=== PATIENT | male | born 1960 | race Caucasian/White ===

== ENCOUNTER 2016-11-08 20:52 | Emergency (ER) | payer OTHER ==
[~2016-11-08 20:52] MED LIST: KLONOPIN1 MG PO; LIBRIUM25 MG PO; SERTRALINE HCL50 MG PO; THERAGRAN1 TABLET PO; THIAMINE HCL100 MG PO; VALIUM10 MG PO; VITAMIN B-1100 MG PO
== END 2016-11-08 20:58 | disposition left against medical advice (07) ==
LOC: EME 20:52
DX: M54.9 Dorsalgia, unspecified (principal); Z53.21 Procedure and treatment not carried out due to patient leaving prior to being seen by health care provider

== ENCOUNTER 2017-01-14 12:24 | Emergency (ER) | payer OTHER ==
[~2017-01-14] VITALS: Ht 172.7 cm; Wt 65.9 kg
[2017-01-14 13:29] LABS: HEMATOCRIT 40.3 % (38.0-50.0); MCH 33.7 PG (29.0-34.0); MCV 96.4 FL (86-99); RBC DIS.WIDTH-CV 13.5 % (11.8-14.6); RBC DIS.WIDTH-SD 48.3 % (39-53); RED BLOOD COUNT 4.18 M/uL (4.00-5.50); WHITE BLOOD COUNT 3.1 K/uL (4.1-10.2)
[2017-01-14 13:31] VITALS: BP 123/98
[2017-01-14 13:31] LABS: CHLORIDE 101 mEq/L (99-109)
[2017-01-14 13:32] LABS: SODIUM 139 mEq/L (136-147)
[2017-01-14 13:34] LABS: GLUCOSE 99 mg/dL (70-99)
[2017-01-14 13:35] LABS: ANION GAP 14 MEQ/L (2-14)
[2017-01-14 13:36] LABS: TOTAL BILIRUBIN 1.5 mg/dL (0.0-1.0)
[2017-01-14 13:37] LABS: ALKALINE PHOSPHATASE 76 IU/L (3-129); SERUM ETHYL ALCOHOL 404 mg/dL
[2017-01-14 13:38] LABS: GFR ESTIMATE (CALCULATED) > 59 mL/min/
[2017-01-14 13:39] LABS: UREA NITROGEN (BUN) 5 mg/dL (9-23)
[2017-01-14 13:41] LABS: LIPASE 66 U/L (1.0-51.0)
[2017-01-14 13:42] LABS: TROP-I INTERPRETATION NEGATIVE; TROPONIN-I < 0.01 ng/mL (0.0-0.30)
[2017-01-14 13:47] LABS: IMM.PLATELET FRACTION 6.7 (1-7); MEAN PLAT.VOLUME 10.1 uM^3 (9.0-12.4); PLATELET COUNT 50 K/uL (156-360)
== END 2017-01-14 14:00 | disposition left against medical advice (07) ==
LOC: EME 12:24
PROVIDERS: Physician Assistant Medical
DX: F10.239 Alcohol dependence with withdrawal, unspecified (principal); Y90.8 Blood alcohol level of 240 mg/100 ml or more; R10.30 Lower abdominal pain, unspecified; F32.9 Major depressive disorder, single episode, unspecified; F17.200 Nicotine dependence, unspecified, uncomplicated
CPT/HCPCS: 80053; 81003; 83690; 84484; 85027; 99281; 99285; G0480; J1885; J2405; J7030

== ENCOUNTER 2017-01-15 14:40 | Emergency (ER) | payer OTHER ==
[~2017-01-15] VITALS: Ht 172.7 cm; Wt 78.0 kg
[2017-01-15 15:20] LABS: HEMATOCRIT 40.5 % (38.0-50.0); MCHC 34.6 G/DL (30.0-36.0); MCV 98.3 FL (86-99); RBC DIS.WIDTH-CV 13.6 % (11.8-14.6); RBC DIS.WIDTH-SD 49.3 % (39-53); RED BLOOD COUNT 4.12 M/uL (4.00-5.50); WHITE BLOOD COUNT 4.5 K/uL (4.1-10.2)
[2017-01-15 15:29] LABS: CHLORIDE 107 mEq/L (99-109); SODIUM 142 mEq/L (136-147)
[2017-01-15 15:31] LABS: GLUCOSE 89 mg/dL (70-99)
[2017-01-15 15:32] LABS: ANION GAP 12 MEQ/L (2-14)
[2017-01-15 15:33] LABS: TOTAL BILIRUBIN 1.4 mg/dL (0.0-1.0)
[2017-01-15 15:34] LABS: SERUM ETHYL ALCOHOL 379 mg/dL
[2017-01-15 15:35] LABS: ALKALINE PHOSPHATASE 73 IU/L (3-129); GFR ESTIMATE (CALCULATED) > 59 mL/min/
[2017-01-15 15:36] LABS: UREA NITROGEN (BUN) 5 mg/dL (9-23)
[2017-01-15 15:38] LABS: LIPASE 71 U/L (1.0-51.0)
[2017-01-15 15:50] LABS: ADD MIUA? YES; BILIRUBIN NEGATIVE; BLOOD SMALL; COLOR STRAW ((YELLOW)); GLUCOSE (STRIP) NEGATIVE; KETONES NEGATIVE; LEUKOCYTES NEGATIVE; NITRITE NEGATIVE; PROTEIN (STRIP) NEGATIVE; SPECIFIC GRAVITY 1.003 (1.000-1.030); UROBILINOGEN 0.2 MG/DL (0.2-1.0)
[2017-01-15 15:55] LABS: BACTERIA NONE SEEN /HPF; EPITHELIAL CELLS NONE SEEN /HPF; MUCUS NONE SEEN /LPF; RED BLOOD CELLS 0-5 /HPF (0-5); WHITE BLOOD CELLS NONE SEEN /HPF (0-5)
[2017-01-15 16:07] LABS: IMM.PLATELET FRACTION 5.1 (1-7); MEAN PLAT.VOLUME 9.9 uM^3 (9.0-12.4); PLAT.SUFFICIENCY VERY DECREASED; PLATELET COUNT 43 K/uL (156-360)
[2017-01-15 16:26] LABS: AMPHETAMINE NEGATIVE (500 ng/mL); BARBITURATES NEGATIVE (200 ng/mL); BENZODIAZEPINES NEGATIVE (150 ng/mL); COCAINE NEGATIVE (150 ng/mL); INTERNAL CONTROLS VALID? YES; METHADONE NEGATIVE (200 ng/mL); METHAMPHETAMINE NEGATIVE (500 ng/mL); OPIATES (MORPHINE) NEGATIVE (100 ng/mL); OXYCODONE NEGATIVE (100 ng/mL); PHENCYCLIDINE NEGATIVE (25 ng/mL); PROPOXYPHENE NEGATIVE (300 ng/mL); THC CANNABINOIDS NEGATIVE (50 ng/mL); TRICYCLIC ANTIDEPRESSANTS NEGATIVE (300 ng/mL)
[2017-01-15 16:33] LABS: TROP-I INTERPRETATION NEGATIVE; TROPONIN-I < 0.01 ng/mL (0.0-0.30)
[2017-01-16 03:49] VITALS: BP 134/92
== END 2017-01-16 03:49 | disposition home or self-care (01) ==
LOC: EME 14:40
PROVIDERS: Emergency Medicine
DX: F10.129 Alcohol abuse with intoxication, unspecified (principal); Y90.8 Blood alcohol level of 240 mg/100 ml or more; R10.9 Unspecified abdominal pain; F32.9 Major depressive disorder, single episode, unspecified; F17.200 Nicotine dependence, unspecified, uncomplicated
CPT/HCPCS: 70450; 74177; 80053; 81003; 83690; 84484; 85027; 90839; 99281; 99285; G0480; J1630; J2060; J3010; J7030